=== PATIENT | male | born 1995 | race Caucasian/White ===

== ENCOUNTER → 2021-04-07 13:36 | Outpatient (BNVA) | payer OTHER, SELFPAY | PROVIDERS: Visit Provider Psychiatry & Neurology Psychiatry | DX: F90.9 Attention-deficit hyperactivity disorder, unspecified type (principal); F39 Unspecified mood [affective] disorder; Z79.899 Other long term (current) drug therapy; Z03.89 Encounter for observation for other suspected diseases and conditions ruled out | CPT/HCPCS: 80053; 80061; 83036; 84443; 85025 ==

== ENCOUNTER 2021-10-21 18:28 | Emergency (ER) | payer SELFPAY ==
[2021-10-21 18:33] VITALS: BP 136/90; PULSE 97; RESP 16; TEMP 36.7; O2SAT 99
--- NOTE | 2021-10-21 18:44 | ED_ITS ---
HPI - Abdominal Pain General: Chief Complaint: Abdominal Pain Stated Complaint: ABD Pain Time Seen by Provider: 10/21/21 18:37 Source: patient and family Mode of arrival: ambulatory Limitations: no limitations History of Present Illness: Patient is a 26-year-old male who presents to ED today for evaluation of lower abdominal pain. He was initially seen by Dr. Vega and referred to the ED for further evaluation. Patient tells me pain began around 9-10 AM and gradually increased in severity since then. He complains of nausea but has not had any episodes of emesis. Patient states he normally has a bowel movement daily but has yet to have one today. He states he has drank 4 bottles of water and has yet to urinate a single time today. He has not been running fevers. No previous abdominal surgeries. Is not complaining of any flank pain. MD elicited complaint: abdominal pain Pertinent past history: none Onset (ago): hour(s) Pain Consistency: constant Location: Periumbilical and Suprapubic Severity: severe Pain scale (0-10): 10 Radiation: none Migration to: no migration Associated Symptoms: Reports nausea; Denies change in bowel habits, chills, diarrhea, fever(s) and vomiting Review of Systems Const: Denies: fever(s), chills, body aches, fatigue or malaise Card: Denies: chest pain Resp: Denies: dyspnea GI: Reports: abdominal pain and nausea; Denies: vomiting, diarrhea or change in bowel habits : Reports: other (has not urinated today; denies urge to urinate currently ); Denies: flank pain Musc: Denies: back pain Skin/Breast: Denies: rash [facility] ED PFSH: Medical History Acute abdominal pain ADHD Concentration deficit Mood disorder Psychiatric care Social History Smoking and tobacco status: never smoked Physical Exam Const: COMMON NORMALS: patient oriented x3, no limitations, alert and well nourished GENERAL APPEARANCE: cooperative and in distress (appears uncomfortable secondary to pain) ORIENTATION/CONSCIOUSNESS: Yes awake, Yes oriented to person, Yes oriented to place and Yes oriented to time HENMT: COMMON NORMALS: normocephalic and atraumatic HEAD & SCALP: normocephalic and atraumatic Resp: COMMON NORMALS: normal respiratory effort and clear to auscultation bilaterally AUSCULTATION: clear to auscultation bilaterally Cardio: COMMON NORMALS: regular rate and regular rhythm RATE: regular rate RHYTHM: regular rhythm GI: COMMON NORMALS: Soft to palpation INSPECTION: Yes normal to inspection AUSCULTATION: Yes Hypoactive bowel sounds present PALPATION: Yes Soft to palpation, Yes Tenderness to palpation present (GI) (periumbilical, suprapubic, LLQ, RLQ; main pain is suprapubic-distended ), Yes Guarding due to palpation present (GI), No Rigid due to palpation and Yes Other GI palpation findings present (positive psoas, negative obturator/heel tap) : COMMON NORMALS: Yes no CVA tenderness BLADDER/KIDNEY EXAM: Yes no CVA tenderness Back/Pelvis: COMMON NORMALS: no CVA tenderness Extremity: COMMON NORMALS: normal to inspection Neuro: ABRIL COMA SCALE: document GCS findings [place] coma scale eye opening: Spontaneous [place] coma scale verbal response: Orientated Abril coma scale motor response: Obey commands [place] coma scale total score: 15 COMMON NORMALS: patient oriented x3, moves all extremities, no focal motor deficits, no sensory deficits noted and gait normal SENSORIUM/ORIENTATION: Yes alert, Yes oriented to person, Yes oriented to place and Yes oriented to time Skin: COMMON NORMALS: no rashes or lesions noted GENERAL SKIN EXAM: no rashes or lesions noted Course Vital Signs: Vital signs: Vital Signs Temperature 98.0 F 10/21/21 18:33 Pulse Rate 101 H 10/21/21 19:26 Respiratory Rate 16 10/21/21 20:54 Blood Pressure 149/90 10/21/21 20:54 Pulse Oximetry 99 10/21/21 20:54 MDM - Abdominal Pain Medical Decision Making Patient is a 26-year-old male here for abdominal discomfort/pain. On history, interestingly, he states he has drank 4 bottles of water today and has not been able to urinate. His vital signs were stable upon arrival although clinically he appeared very uncomfortable somewhat pacing around the room. His blood work is fairly unremarkable. Patient was able to give a urine sample however he states he had significant difficulty urinating and states he was only able to void a small amount. He still complained of pressure to his suprapubic region. Bladder scanner unfortunately was malfunctioning and would only read greater than 200 . He did feel clinically distended to suprapubic region and was tender here. CT scan read reported normal bladder but personal interpretation was that his bladder was distended. Decision for Mills cath was made and we immediately got 600 mL of urine out. Continued to drain and at time of DC we were able to get 800ml of urine. He has no neurologic complaints. No new medication changes/dosing-he does take Adderall daily but has been on this for months. This medication is a sympathomimetic and could cause urinary retention in theory. Will leave mills in at this time and have patient follow up with Dr. Jeong for further evaluation. Return to ED precautions given. Lab Data : 10/21/21 19:00 10/21/21 19:00 Labs/Radiology: Radiology Impressions Abdomen/Pelvis CT 10/21/21 18:49 IMPRESSION: 1. Dilated stool-filled rectum. No sign of stercoral colitis. Correlate with clinical findings of constipation. 2. Minimal reticulonodular opacity in the right lung base. Possible low-grade infection. Laboratory Results WBC 13.3 10^3/uL (4.0-10.0) H 10/21/21 19:00 RBC 5.17 10^6/uL (4.1-5.3) 10/21/21 19:00 Hgb 15.4 g/dL (11.7-16.6) 10/21/21 19:00 Hct 43.9 % (42.0-52.0) 10/21/21 19:00 MCV 84.9 fl (80-94) 10/21/21 19:00 MCH 29.8 pg (28.0-34.0) 10/21/21 19:00 MCHC 35.1 g/dL (30.0-36.0) 10/21/21 19:00 RDW 11.8 % (12.1-15.1) L 10/21/21 19:00 Plt Count 232 10^3/cmm (130-400) 10/21/21 19:00 MPV 11.1 fL (7.4-10.4) H 10/21/21 19:00 Neut % (Auto) 83.0 % 10/21/21 19:00 Lymph % (Auto) 8.8 % 10/21/21 19:00 Amelia % (Auto) 7.4 % 10/21/21 19:00 Eos % (Auto) 0.2 % 10/21/21 19:00 Baso % (Auto) 0.3 % 10/21/21 19:00 Neut # (Auto) 11.04 10^3/uL (1.8-7.7) H 10/21/21 19:00 Lymph # (Auto) 1.2 10^3/uL (0.8-4.8) 10/21/21 19:00 Amelia # (Auto) 1.0 10^3/uL (0.2-0.9) H 10/21/21 19:00 Eos # (Auto) 0.0 10^3/uL (0.0-0.8) 10/21/21 19:00 Baso # (Auto) 0.0 10^3/uL (0.0-0.1) 10/21/21 19:00 Nucleated RBC % (auto) 0 % 10/21/21 19:00 Nucleated RBCs # 0.0 /100WBC 10/21/21 19:00 Sodium 134 mmol/L (136-145) L 10/21/21 19:00 Potassium 3.6 mmol/L (3.5-5.1) 10/21/21 19:00 Chloride 96 mmol/L (98-107) L 10/21/21 19:00 Carbon Dioxide 24 mmol/L (22-29) 10/21/21 19:00 Anion Gap 17.6 (5-19) 10/21/21 19:00 BUN 9 mg/dL (6-20) 10/21/21 19:00 Creatinine 0.8 mg/dL (0.7-1.2) 10/21/21 19:00 GFR Calculation 118.8 mL/min (90-130) 10/21/21 19:00 Glucose 109 mg/dL (65-115) 10/21/21 19:00 Calculated Osmolality 277 mOsm/kg (285-295) L 10/21/21 19:00 Calcium 9.7 mg/dL (8.5-10.5) 10/21/21 19:00 Total Bilirubin 0.5 mg/dL (0.15-1.2) 10/21/21 19:00 AST 30 U/L (0-40) 10/21/21 19:00 ALT 43 U/L (0-41) H 10/21/21 19:00 Alkaline Phosphatase 49 IU/L (40-130) 10/21/21 19:00 Total Protein 7.6 g/dL (6.6-8.7) 10/21/21 19:00 Albumin 5.0 g/dL (3.5-5.2) 10/21/21 19:00 Globulin 2.6 g/dL (1.3-4.6) 10/21/21 19:00 Lipase 20 U/L (13-60) 10/21/21 19:00 Urine Color Yellow (Yellow) 10/21/21 19:53 Urine Appearance Turbid (CLEAR) 10/21/21 19:53 Urine pH 7 (5-7) 10/21/21 19:53 Ur Specific [place] 1.010 (1.005-1.030) 10/21/21 19:53 Urine Protein Neg (Negative) 10/21/21 19:53 Urine Glucose (UA) Norm (Normal) 10/21/21 19:53 Urine Ketones 1+ (Negative) H 10/21/21 19:53 Urine Blood Neg (Negative) 10/21/21 19:53 Urine Nitrate Negative (Negative) 10/21/21 19:53 Urine Bilirubin Neg (Negative) 10/21/21 19:53 Urine Urobilinogen Norm mg/dL (Negative) 10/21/21 19:53 Ur Leukocyte Esterase Negative (Negative) 10/21/21 19:53 Discharge Plan Discharge Patient Disposition: Home Clinical Impression: Acute urinary retention Condition: Stable Prescriptions: No Action dextroamphetamine-amphetamine 20 mg capsule,extended release 24hr 20 mg PO QAM 30 Days Qty: 30 0RF Discharge Orders: Discharge ED (Routine); Ordered 10/21/21 Ordered By: Liset Hunt Referrals: Maurizio Jeong MD [Physician] - Patient Instructions: Mills Catheter Care, Urinary Retention Activity Restrictions/Additional Instructions: As we discussed case management should contact you on Saturday to set you up with your follow-up appointment with urology. 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
--- NOTE | 2021-10-21 18:49 | CTR_ITS ---
PROCEDURE INFORMATION: Exam: CT Abdomen And Pelvis Without Contrast Exam date and time: 10/21/2021 7:11 PM Age: 26 years old Clinical indication: Abdominal pain; Localized; Lower; Additional info: Lower abdomen pain, nausea TECHNIQUE: Imaging protocol: Computed tomography of the abdomen and pelvis without contrast. Radiation optimization: All CT scans at this facility use at least one of these dose optimization techniques: automated exposure control; mA and/or kV adjustment per patient size (includes targeted exams where dose is matched to clinical indication); or iterative reconstruction. COMPARISON: No relevant prior studies available. RADIATION DOSE METRICS: Total DLP (mGy-cm): 1205 FINDINGS: Lungs: Minimal patchy reticulonodular opacity in the right lung base. Liver: The liver is normal. Gallbladder and bile ducts: The gallbladder is normal. There is no biliary dilation. Pancreas: The pancreas is unremarkable. Spleen: The spleen is unremarkable. Adrenal glands: The adrenal glands are unremarkable. Kidneys and ureters: The kidneys are unremarkable. No hydronephrosis or stones. No ureteral dilation. Stomach and bowel: The stomach is decompressed, preventing meaningful evaluation of wall thickness. The small bowel is nondilated. Colon is intermittently stool filled. The sigmoid colon and rectum are stool distended. The rectum is dilated, measuring up to 8 cm diameter. No sign of inflammation. Appendix: The appendix is normal. Intraperitoneal space: There is no free air or significant intraperitoneal free fluid. Vasculature: The aorta is unremarkable. There is no aneurysm. Lymph nodes: There is no lymphadenopathy in the retroperitoneum, mesentery, pelvis or inguinal regions. Urinary bladder: The urinary bladder is unremarkable. Reproductive: The prostate and seminal vesicles are unremarkable. Bones/joints: Bones are unremarkable. Soft tissues: The abdominal wall is intact. CT/CT abdomen pelvis wo con [id number] IMPRESSION: 1. Dilated stool-filled rectum. No sign of stercoral colitis. Correlate with clinical findings of constipation. 2. Minimal reticulonodular opacity in the right lung base. Possible low-grade infection.
[2021-10-21 19:08] LABS: Basophils % 0.3 %; Eosinophils % 0.2 %; Hematocrit 43.9 % (42.0-52.0); Hemoglobin 15.4 g/dL (11.7-16.6); Lymphocytes # 1.2 10^3/uL (0.8-4.8); Lymphocytes % 8.8 %; Mean Corpuscular HGB Conc 35.1 g/dL (30.0-36.0); Mean Corpuscular Hemoglobin 29.8 pg (28.0-34.0); Mean Corpuscular Volume 84.9 fl (80-94); Mean Platelet Volume 11.1 fL (7.4-10.4); Monocytes % 7.4 %; Neutrophils # 11.04 10^3/uL (1.8-7.7); Nucleated Red Blood Cells % 0 %; Platelet Count 232 10^3/cmm (130-400); Red Blood Count 5.17 10^6/uL (4.1-5.3); Red Cell Distribution Width 11.8 % (12.1-15.1); White Blood Count 13.3 10^3/uL (4.0-10.0)
--- NOTE | 2021-10-21 19:12 | PC.NURSE ---
Patient bladder scan >200.
[2021-10-21 19:25] VITALS: RESP 24
[2021-10-21] MEDS: ondansetron 2 mg/ML SDV 2 mL 4 MG IVP (19:25)
[2021-10-21] MEDS: sodium chloride 0.9% 1,000 ML 999 ML IV (19:25)
[2021-10-21] MEDS: morphine 4 mg/mL SDV 1 mL IVP (19:25)
[2021-10-21 19:26] VITALS: BP 182/97; PULSE 101; RESP 24; O2SAT 100
[2021-10-21 19:28] LABS: Alanine Aminotransferase 43 U/L (0-41); Alkaline Phosphatase 49 IU/L (40-130); Anion Gap 17.6 (5-19); Aspartate Amino Transferase 30 U/L (0-40); Blood Urea Nitrogen 9 mg/dL (6-20); Calcium 9.7 mg/dL (8.5-10.5); Carbon Dioxide 24 mmol/L (22-29); Chloride 96 mmol/L (98-107); Creatinine Clr Calc Pharmacy 183.3654; Globulin 2.6 g/dL (1.3-4.6); Glomerular Filtration Rate 118.8 mL/min (90-130); Glucose 109 mg/dL (65-115); Lipase 20 U/L (13-60); Osmolality Calculated 277 mOsm/kg (285-295); Potassium 3.6 mmol/L (3.5-5.1); Sodium 134 mmol/L (136-145); Total Bilirubin 0.5 mg/dL (0.15-1.2); Total Protein 7.6 g/dL (6.6-8.7)
[2021-10-21 20:00] LABS: Add Urine Microscopic? NO; Charge for UA Resulting for Rev
[2021-10-21 20:22] LABS: Bilirubin Urine Neg (Negative); Blood Urine Neg (Negative); Glucose Urine UA Norm (Normal); Ketones Urine 1+ (Negative); Leukocyte Esterase Urine Negative (Negative); Nitrate Urine Negative (Negative); Protein Urine Neg (Negative); Urine Appearance Turbid (CLEAR); Urine Color Yellow (Yellow); Urobilinogen Urine Norm (Negative); pH Urine 7 (5-7)
[2021-10-21 20:54] VITALS: BP 149/90; RESP 16; O2SAT 99
--- NOTE | 2021-10-22 07:13 | DCPLANNER ---
Addendum entered by Lucrecia Arellano 11/26/21 15:16: Patient had a follow up appointment scheduled for 11.03.21 with urology - patient did not attend appointment. Original Note: funeral home location manager had message to schedule a follow up appointment for patient with urology. funeral home location manager sent patients information to the front office staff at urology. Patients information will be printed and reviewed. Clinic will call patient with appointment information.
== END 2021-10-21 22:00 | disposition home or self-care (01) ==
PROVIDERS: Emergency Provider Physician Assistant
DX: R33.9 Retention of urine, unspecified (principal)
CPT/HCPCS: 51702; 51798; 74176; 80053; 81003; 83690; 85025; 96361; 96374; 96375; 99284; J2270; J2405; J7030